=== PATIENT | male | born 1960 | race Caucasian/White ===

== ENCOUNTER 2022-10-10 15:46 | Outpatient (CLI) | payer BC, SELFPAY ==
--- NOTE | ~2022-10-10 | MR_ITS ---
. EXAMINATION: MR lumbar spine wo con DATE: 10/10/2022 16:33 INDICATION: Lumbar spondylosis. Low back pain. TECHNIQUE: Magnetic resonance imaging (MRI) of the lumbar spine was performed without intravenous con trast. Sequences included sagittal T2-weighted FSE, sagittal T2-weighted FS FSE, sagittal T1-weighted FSE, and axial T2-weighted FSE. COMPARISON: None FINDINGS: Bone alignment is normal. Vertebral body heights are normal. There is mildly decreased disc height at L1-L2, L3-L4, and L4-L5 and severely decreased disc height at L5-S1. The distal spinal cor d signal intensity is normal. The conus medullaris is at T12. The following disc levels are specifica lly discussed: L1-L2: There is a central protrusion. There is mild bilateral facet joint osteoarthritis. There is mi ld bilateral neural foraminal stenosis. There is mild central canal stenosis. L2-L3: The disc is mildly bulging. There is moderate bilateral facet joint osteoarthritis. There is m ild bilateral neural foraminal stenosis. There is no central canal stenosis. L3-L4: The disc is bulging. There is severe bilateral facet joint osteoarthritis. There is mild bilat eral neural foraminal stenosis. There is mild central canal stenosis. L4-L5: The disc is bulging. There is severe bilateral facet joint osteoarthritis. There is moderate b ilateral neural foraminal stenosis. There is moderate central canal stenosis. L5-S1: The disc is bulging with superimposed right central extrusion with mass effect on right S1 ner ve root in right lateral recess. There is severe bilateral facet joint osteoarthritis. There is moder ate bilateral neural foraminal stenosis. There is mild central canal stenosis. There is moderate sten osis of right lateral recess. IMPRESSION: 1. Severe lumbar spondylosis. Reviewed, dictated and finalized at location A.
== END 2022-10-10 15:47 ==
LOC: MICIMG 15:51
PROVIDERS: Visit Provider Nurse Practitioner Family
DX: M47.816 Spondylosis without myelopathy or radiculopathy, lumbar region (principal)
CPT/HCPCS: 72148

== ENCOUNTER 2024-11-11 07:43 | Outpatient (CLI) | payer OTHER, SELFPAY ==
--- NOTE | ~2024-11-11 | MR_ITS ---
MRI of the left shoulder Technique: Axial proton-density fat-sat images, coronal proton density fat-sat and T2 fat-sat images, and sagittal T1-weighted and T2 fat-sat images were acquired. Clinical History: Pain Findings: There is mild AC joint degenerative change. There is probable tear of the inferior acromioc lavicular ligament with fluid passing from the subacromial/subdeltoid bursa through this tear into th e AC joint itself. Coracoclavicular, coracoacromial, and coracohumeral ligaments are intact. There is complete, full-thickness tear of the supraspinatus tendon. Fluid-filled gap measures 3.3 x 3 .3 cm in extent. Infraspinatus tendon is intact. Subscapularis tendon is intact with mild to moderate tendinosis. Tendon of the long head of the biceps is intact. No definite labral tear seen. Inferior glenohumeral ligament is intact. No degenerative change of the glenohumeral joint. Probable mild atrophic change of the supraspinatus muscle belly. Impression: Complete, full-thickness tear of the the supraspinatus tendon, as detailed above. Probable associated mild atrophy of the supraspinatus muscle belly. Probable tear of the inferior acromioclavicular ligament with fluid passing from the glenohumeral polo nt through the rotator cuff tear into the subacromial/subdeltoid bursa, and into the AC joint itself. Reviewed, dictated and finalized at location . Impression: Complete, full-thickness tear of the the supraspinatus tendon, as detailed abov e. Probable associated mild atrophy of the supraspinatus muscle belly. Probable tear of the inferior acromioclavicular ligament with fluid passing fro m the glenohumeral joint through the rotator cuff tear into the subacromial/sub deltoid bursa, and into the AC joint itself.
--- NOTE | ~2024-11-11 | MR_ITS ---
MRI of the left knee Clinical history: Pain Technique: Coronal proton density and proton density-weighted images, sagittal proton-density and T2 fat-sat images, and axial proton-density fat-saturated images were acquired. Findings: Status post ACL reconstruction. The graft is probably intact, though significantly hyperint ense. Posterior cruciate ligament intact. Medial collateral ligament and the lateral collateral ligam ent complex are intact. Popliteus tendon is intact. There is extensive complex tearing of the posterior horn of the medial meniscus, probably extending i nto the body segment. No definite lateral meniscal tear seen. There is mild chondromalacia of the patellofemoral compartment. There is diffuse high-grade chondroma lacia on both sides of the medial compartment. There is mild chondromalacia of the lateral compartmen t. Moderate tricompartmental osteophyte formation is present. There is extensive amorphous marrow lyssa ma throughout the patella. No fracture evident. Extensor mechanism is intact. Small joint effusion present. No Paniagua's cyst. Impression: Diffuse amorphous marrow edema of the patella. Correlate for diffuse bone contusion or other reactive marrow edema. No fracture evident. Extensive complex tearing of the posterior horn of the medial meniscus, possibly extending to the bod y segment. Prior ACL reconstruction with hyperintense signal of the graft. Correlate for chronic graft impingeme nt. No definite recurrent tear evident. Moderate degenerative change throughout the knee, as detailed above, with high-grade chondromalacia o f the medial compartment, and tricompartmental osteophyte formation. Reviewed, dictated and finalized at [facility]. Impression: Diffuse amorphous marrow edema of the patella. Correlate for diffuse bone contu isaías or other reactive marrow edema. No fracture evident. Extensive complex tearing of the posterior horn of the medial meniscus, possibl y extending to the body segment. Prior ACL reconstruction with hyperintense signal of the graft. Correlate for c hronic graft impingement. No definite recurrent tear evident. Moderate degenerative change throughout the knee, as detailed above, with high- grade chondromalacia of the medial compartment, and tricompartmental osteophyte formation.
== END 2024-11-11 07:44 | disposition home or self-care (01) ==
LOC: MICIMG 07:46
PROVIDERS: PCP Family Medicine; Visit Provider Family Medicine
DX: S43.52XA Sprain of left acromioclavicular joint, initial encounter (principal); S83.231A Complex tear of medial meniscus, current injury, right knee, initial encounter; X58.XXXA Exposure to other specified factors, initial encounter; M25.462 Effusion, left knee; M17.11 Unilateral primary osteoarthritis, right knee; Z98.890 Other specified postprocedural states
CPT/HCPCS: 73221; 73721